=== PATIENT | female | born 1965 | race Caucasian/White ===

== ENCOUNTER 2018-04-12 14:39 | Emergency (ER) | payer OTHER ==
[2018-04-12] MEDS: FAMOTIDINE 20 MG TAB PO (16:09)
[2018-04-12] MEDS: DIPHENHYDRAMINE 25 MG CAP PO (16:09)
[2018-04-12] MEDS: DEXAMETHASONE 10 MG/ML 1 ML INJ IM (16:23)
== END 2018-04-12 17:20 | disposition home or self-care (01) ==
LOC: FTE 14:39
DX: R21 Rash and other nonspecific skin eruption (principal)
CPT/HCPCS: 96372; 99284-25